=== PATIENT | female | born 1985 | race African-American/Black ===

== ENCOUNTER 2017-02-01 19:28 | Emergency (ER) ==
[2017-02-01 20:01] LABS: URINE CULTURE NEEDED? NO; URINE MICRO REVIEW NEEDED? NO; URINE SOURCE CLEAN CATCH
[2017-02-01 20:04] LABS: BILIRUBIN URINE NEGATIVE (NEGATIVE); BLOOD URINE NEGATIVE (NEGATIVE); COLOR YELLOW; GLUCOSE URINE NEGATIVE (NEGATIVE); LEUKOCYTES URINE NEGATIVE (NEGATIVE); NITRITE URINE NEGATIVE (NEGATIVE); PROTEIN URINE TRACE mg/dL (NEGATIVE); SP GRAVITY URINE 1.029; TURBIDITY URINE CLEAR (CLEAR); UROBILINOGEN URINE NORMAL (NORMAL)
[2017-02-01 20:05] LABS: UR EPITHELIAL CELLS <10 /HPF (<10); URINE BACTERIA 1+ /HPF; URINE RBC <10 /HPF (<10); URINE WBC <10 /HPF (<10)
--- NOTE | 2017-02-01 21:15 | PROVIDER DOCUMENTATION ---
HPI-Female /OB/Breast - General Chief Complaint: Female Stated Complaint: FEMALE Time Seen by Provider: 02/01/17 20:49 Source: reports: patient Allergies/Adverse Reactions: Patient Allergies Allergy/AdvReac Type Severity Reaction Status Date / Time No Known Allergies Allergy Verified 02/01/17 21:44 Home Medications: Home Medication List Medication Instructions Recorded Confirmed Last Taken Type Metronidazole [Flagyl] 500 mg PO BID #14 tablet 02/01/17 Unknown Rx - History of Present Illness-Female /OB Nature of Presenting Problem: 31 y/o AAF c/o pelvic pressure and discomfort, feeling "pain in my ovaries." Has A BTL. Reports a thick, white vaginal discharge. Last time she had unprotected sex was 2 months ago. Discharge for 1 week. Tried monostat without relief. Hx of LEEP x 2, with last being last year at some point. Denies abdominal pain, nausea, vomiting or diarrhea. Denies fevers or chills. Review of Systems - Adult - REVIEW OF SYSTEMS - ADULT Constitutional: reports: no symptoms reported. denies: chills, fever, fatique Eyes: reports: no symptoms reported. denies: blurred vision, double vision, eye pain Ears, Nose, Mouth & Throat: reports: no symptoms reported. denies: ear pain, nose pain, throat pain Cardiovascular: reports: no symptoms reported. denies: chest pain, palpitations Respiratory: reports: no symptoms reported. denies: cough, shortness of breath , wheezing Gastrointestinal: reports: see HPI, other (pelvic pain). denies: abdominal pain , diarrhea, nausea, vomiting Genitourinary: reports: no symptoms reported, see HPI, discharge. denies: dysuria, frequency, frequent UTI's, incontinence Musculoskeletal: reports: no symptoms reported. denies: back pain Integumentary: reports: no symptoms reported. denies: rash Neurological: reports: no symptoms reported. denies: headache/migraines Psychiatric: reports: no symptoms reported Endocrine: reports: no symptoms reported Hematologic/Lymphatic: reports: no symptoms reported Allergic/Immunologic: reports: no symptoms reported All Other Systems: Reviewed and Negative Past History - Adult - PAST MEDICAL HISTORY-ADULT Review of Records: reports: Old Records Reviewed, Nursing Assessment Review, Medications Reviewed Major Childhood Illnesses: reports: denies history Cardiovascular: reports: denies history Respiratory: reports: denies history Gastrointestinal: reports: denies history Obstetrical/Gynecological: reports: denies history Genitourinary: reports: denies history Musculoskeletal: reports: denies history Neurological: reports: denies history Psychiatric: reports: anxiety Endocrine/Immune: reports: anemia Other Conditions: reports: denies history - PRIOR SURGERIES/PROCEDURES Surgical/Procedure History: reports: , tonsillectomy - PRIOR HOSPITALIZATIONS Prior Hospitalizations: reports: none - IMMUNIZATION STATUS Childhood Immunizations: UTD Flu Vaccine: See Nurse Assessment - FAMILY HISTORY Family History: reviewed, not pertinent Physical Exam-General - PHYSICAL EXAM-ADULT Initial Vital Signs Reviewed: Yes - CONSTITUTIONAL General Appearance: appears well, alert, no apparent distress - EYES Eyes: PERRL/EOMI, pink conjunctivae - HEAD, EARS, NOSE, MOUTH & THROAT HENMT: normocephalic/atraumatic, moist mucous membranes - NECK Neck: normal inspection - RESPIRATORY Respiratory: chest non-tender, lungs clear, normal breath sounds, no pleuratic chest pain, no respiratory distress, no accessory muscle use. negative: respiratory distress, decreased breath sounds, accessory muscle use, crackles, rales, rhonchi, wheezing - CARDIOVASCULAR Cardiovascular: normal peripheral pulses, regular rate, rhythm - GASTROINTESTINAL (ABDOMEN) Abdominal Exam: normal bowel sounds, non tender, soft, no organomegaly, no pulsatile mass - GENITOURINARY Female Genitalia/Pelvic Exam: discharge (thick white dischparge, copious), lesions (on the cervix, circumferentail) - MUSCULOSKELETAL Back Exam: normal inspection Extremity: normal gait - SKIN Integumentary: normal color, normal turgor, warm/dry - NEUROLOGIC Neurologic: grossly normal, no motor/sensory deficits - PSYCHIATRIC Psych/Mental Status: normal mood/affect, normal thought content, normal thought process, oriented x 3 Progress - PLAN OF CARE/RESULTS Progress/Plan/Lab Results: Vital Signs Temp Pulse Resp BP Pulse Ox 02/01/17 19:46 98.2 F 94 H 16 118/75 100 No Known Allergies Allergy (Verified 02/01/17 21:44) No Home Medications 02/01/17 I&O 01/31/17 02/01/17 02/02/17 06:59 06:59 06:59 Output Total 100 Balance -100 Laboratory 02/01/17 02/01/17 19:50 19:50 Urine Source CLEAN CATCH Urine Color YELLOW Urine Turbidity CLEAR Urine pH 6.0 Ur Specific [place] 1.029 Urine Protein TRACE A Ur Glucose (Stick) NEGATIVE Ur Ketones (Stick) NEGATIVE Urine Blood NEGATIVE Urine Nitrite NEGATIVE Urine Bilirubin NEGATIVE Urobilinogen Dipstick NORMAL Urine Leukocytes NEGATIVE Urine WBC (Auto) <10 Urine RBC (Auto) <10 U Epithel Cells (Auto) <10 Urine Bacteria (Auto) 1+ Urine Test NEGATIVE Orders Category Date Time Status Pelvic set up DIRECTED Care 02/01/17 21:02 Active CHLAMYDIA AND GC BY PCR URINE [WARREN] Stat Lab 02/01/17 19:50 Received GRAM STAIN AND WET PREP [DIREX] Stat Lab 02/01/17 21:03 Uncollected TEST-URINE [PREG] Stat Lab 02/01/17 19:50 Completed URINALYSIS W/POSS RFLX CULT [URINALYSIS] Stat Lab 02/01/17 19:50 Completed 2+ clue cells on wet prep Departure - Departure Time of Disposition Order: 23:14 DIAGNOSIS: Bacterial vaginosis Disposition: HOME 01 Certified Medical Emergency: Emergent Condition: Stable Additional Instructions: Follow up with your [facility] ED Follow Up Instructions: You have been treated by a care provider in the Emergency Department. These instructions are being provided to you so you can have an understanding of how to care for yourself upon discharge. Upon discharge from the Emergency Department, you are responsible for making arrangements for follow-up care by a physician of your choice. Take all prescribed medications as directed. Return to the Emergency Department immediately for any new or worsening symptoms. You may call the Physician Referral phone number at [phone] to obtain a list of Physicians who are taking new patients. Prescriptions: Metronidazole [Flagyl] 500 mg PO BID #14 tablet Attestation - Physician/ COLLEEN Attestation Patient care was provided by Advanced Practice Provider:: Yes Advanced Practice Provider:: Luci Reese Advanced Practice Provider documentation review:: The Mid-level provider documentation, treatment plan and medical decision making was reviewed by the physician who agrees with all treatment and medical decision making by the MLP.
[2017-02-01] MEDS ORDERED: FLAGYL PO ONE (23:14)
[2017-02-01 23:26] VITALS: BP 125/87
== END 2017-02-01 23:27 | disposition home or self-care (01) ==
LOC: ED 19:28
DX: N76.0 Acute vaginitis (principal); R10.2 Pelvic and perineal pain; N89.8 Other specified noninflammatory disorders of vagina; N88.9 Noninflammatory disorder of cervix uteri, unspecified
CPT/HCPCS: 81001; 81025; 87205; 87210; 87491; 87591